=== PATIENT | female | born 1950 | race Caucasian/White ===

== ENCOUNTER 2017-10-13 06:00 | Emergency (ER) | payer OTHER | END 2017-10-13 09:35 | disposition home or self-care (01) | LOC: FTE 06:00 | DX: J06.9 Acute upper respiratory infection, unspecified (principal); I10 Essential (primary) hypertension | CPT/HCPCS: 71045; 99283-25 ==

== ENCOUNTER 2017-10-27 12:15 | Emergency (ER) | payer MEDICAID ==
[2017-10-27 16:36] LABS: ADD MAN DIFF? NO
[2017-10-27 16:38] LABS: BASOPHIL # 0.1 10^3/ul (0.0-0.1); BASOPHILS % 0.6 % (0.0-2.0); EOSINOPHILS # 0.1 10^3/ul (0.0-0.5); EOSINOPHILS % 0.8 % (0.0-7.0); HEMATOCRIT 42.8 % (37.0-47.0); HEMOGLOBIN 14.5 g/dl (12.0-16.0); LYMPHOCYTES # 3.4 10^3/ul (0.8-2.9); LYMPHOCYTES % 43.1 % (15.0-51.0); MEAN CORPUSCULAR HEMOGLOBIN 28.2 pg (29.0-33.0); MEAN CORPUSCULAR HGB CONC 33.9 g/dl (32.0-37.0); MEAN CORPUSCULAR VOLUME 83.1 fl (82.0-101.0); MEAN PLATELET VOLUME 9.4 fl (7.4-10.4); MONOCYTE # 0.6 10^3/ul (0.3-0.9); NEUTROPHIL # 3.7 10^3/ul (1.6-7.5); NEUTROPHILS % 47.4 % (39.0-77.0); PLATELET COUNT 310 10^3/UL (140-415); RED BLOOD COUNT 5.15 10^6/ul (4.20-5.40); RED CELL DISTRIBUTION WIDTH 13.6 % (11.5-14.5)
[2017-10-27 16:38] LABS: WHITE BLOOD COUNT 7.9 10^3/ul (4.8-10.8)
[2017-10-27 17:01] LABS: ANION GAP 16 (8-16); BLOOD UREA NITROGEN 9 mg/dl (7-20); CALCIUM 9.9 mg/dl (8.4-10.2); CARBON DIOXIDE 29 mmol/L (21-31); CHLORIDE 99 mmol/L (97-110); CREATININE 0.64 mg/dl (0.44-1.00); GLUCOSE 106 mg/dl (70-220); POTASSIUM 3.2 mmol/L (3.5-5.1); SODIUM 141 mmol/L (135-144)
[2017-10-27 17:14] LABS: TROPONIN-I < 0.012 ng/ml (0.00-0.12)
[2017-10-27] MEDS: KETOROLAC 15 MG INJ IV (18:57)
== END 2017-10-27 19:13 | disposition home or self-care (01) ==
LOC: E/R 12:15
DX: M79.1 Myalgia (principal); I10 Essential (primary) hypertension; R40.2142 Coma scale, eyes open, spontaneous, at arrival to emergency department; R40.2252 Coma scale, best verbal response, oriented, at arrival to emergency department; R40.2362 Coma scale, best motor response, obeys commands, at arrival to emergency department; Z79.82 Long term (current) use of aspirin
CPT/HCPCS: 36415; 71045; 80048; 84484; 85025; 93005; 96374; 99285-25

== ENCOUNTER 2018-03-02 15:20 | Emergency (ER) | payer MEDICAID ==
[2018-03-02 16:52] LABS: ADD MAN DIFF? NO
[2018-03-02 16:54] LABS: BASOPHILS % 0.4 % (0.0-2.0); EOSINOPHILS # 0.1 10^3/ul (0.0-0.5); EOSINOPHILS % 1.1 % (0.0-7.0); HEMATOCRIT 39.3 % (37.0-47.0); HEMOGLOBIN 13.4 g/dl (12.0-16.0); LYMPHOCYTES % 27.1 % (15.0-51.0); MEAN CORPUSCULAR HEMOGLOBIN 28.8 pg (29.0-33.0); MEAN CORPUSCULAR HGB CONC 34.1 g/dl (32.0-37.0); MEAN CORPUSCULAR VOLUME 84.5 fl (82.0-101.0); MEAN PLATELET VOLUME 9.5 fl (7.4-10.4); MONOCYTE # 0.7 10^3/ul (0.3-0.9); MONOCYTES % 9.4 % (0.0-11.0); NEUTROPHIL # 4.5 10^3/ul (1.6-7.5); NEUTROPHILS % 61.6 % (39.0-77.0); PLATELET COUNT 271 10^3/UL (140-415); RED BLOOD COUNT 4.65 10^6/ul (4.20-5.40); RED CELL DISTRIBUTION WIDTH 13.9 % (11.5-14.5)
[2018-03-02 16:54] LABS: WHITE BLOOD COUNT 7.3 10^3/ul (4.8-10.8)
[2018-03-02] MEDS: ACETAMINOPHEN 325 MG TAB PO (16:58)
[2018-03-02] MEDS: SOD CHLORIDE 0.9% 500 ML IV (16:58)
[2018-03-02] MEDS: ASPIRIN 325 MG TAB PO (16:58)
[2018-03-02] MEDS: ONDANSETRON 4 MG INJ IV (16:58)
[2018-03-02 17:12] LABS: ANION GAP 13 (8-16); BLOOD UREA NITROGEN 10 mg/dl (7-20); CALCIUM 9.2 mg/dl (8.4-10.2); CARBON DIOXIDE 27 mmol/L (21-31); CHLORIDE 100 mmol/L (97-110); GLUCOSE 106 mg/dl (70-220); SODIUM 137 mmol/L (135-144)
[2018-03-02 17:18] LABS: POTASSIUM 2.9 mmol/L (3.5-5.1)
[2018-03-02 17:24] LABS: B-TYPE NATRIURETIC PEPTIDE 88 PG/ML (0-125)
[2018-03-02] MEDS: POTASSIUM CHLORIDE (SR) 10 MEQ TAB PO (19:28)
[2018-03-02] MEDS: POTASSIUM CHLORIDE (SR) 20 MEQ TAB PO (19:28)
[2018-03-02] MEDS: METOCLOPRAMIDE 10 MG INJ IV (21:50)
== END 2018-03-02 23:39 | disposition home or self-care (01) ==
LOC: E/R 15:20
DX: I10 Essential (primary) hypertension (principal); E87.6 Hypokalemia; Z79.82 Long term (current) use of aspirin
CPT/HCPCS: 36415; 70450; 71045; 80048; 83880; 84484; 85025; 93005; 93971; 96374; 96375; 99285-25